=== PATIENT | male | born 1960 | race Caucasian/White ===

== ENCOUNTER 2016-09-08 11:32 | Observation (INO) ==
[2016-09-08] MEDS ORDERED: NITROGLYCERIN SL 0.4 MG TABLET SL PRN (11:54)
[2016-09-08] MEDS ORDERED: ASPIRIN 325 MG TABLET PO STA (11:54)
[2016-09-08] MEDS ORDERED: ENOXAPARIN 100 MG/ML SYRINGE SUBCUT STA (11:54)
--- NOTE | 2016-09-08 11:57 | EKG Report ---
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
[2016-09-08 12:00] LABS: Basophils # 0.1 10*3/uL (0.0-0.2); Basophils % 0.5 % (0.0-0.8); Eosinophils # 0.2 10*3/uL (0.0-0.87); Eosinophils % 2.5 % (0.00-10.9); Hematocrit 44.3 VOL% (42.0-52.0); Hemoglobin 15.1 GM/DL (14.0-18.0); Immature Granulocytes % 0.5 %; Immature Granulocytes Absolute 0.05 #; Lymphocytes # 2.2 10*3/uL (1.4-4.0); Lymphocytes % 22.4 % (21.2-54.2); Mean Corpuscular HGB Conc 34.1 GM/DL (32-36); Mean Corpuscular Hemoglobin 31 PG (27-34); Mean Corpuscular Volume 91.9 FL (87-102); Mean Platelet Volume 9.7 FL (9.6-12.0); Monocytes # 0.5 10*3/uL (0.11-0.8); Monocytes % 5.1 % (1.7-12.7); Neutrophils # 6.7 10*3/uL (1.4-7.4); Platelet Count 302 T/CUMM (130-400); Red Blood Count 4.82 MC/CUMM (3.8-5.5); Red Cell Distribution Width 13.6 % (9.3-17.3); White Blood Count 9.7 T/CUMM (4-12)
[2016-09-08] MEDS ORDERED: ENOXAPARIN 100 MG/ML SYRINGE SUBCUT ONE (12:13)
[2016-09-08] MEDS ORDERED: ASPIRIN 325 MG TABLET ONE (12:13)
--- NOTE | 2016-09-08 12:16 | XRay Report ---
XR chest 2V Indication: Chest pain. Chest 2 views: Comparison 11/21/2015. Heart size and mediastinal contour are normal. Lungs are hypoinflated but generally clear, except for minimal bibasilar atelectasis. Pleural spaces are clear. Bones are intact. Impression: Mild pulmonary hypoinflation with atelectasis. PROCEDURE INTERPRETED AT [facility] DEPARTMENT OF RADIOLOGY Final Report Signed by: Ion Pleitez M.D.
[2016-09-08 12:17] LABS: Albumin 3.9 G/DL (3.4-5.0); Bilirubin,Total 0.4 MG/DL (0.2-1.0); Calcium 9.4 MG/DL (8.5-10.1); Osmolality,Calculated 277.5 MOS/KG (273-304); Potassium 4.2 MMOL/L (3.5-5.1); Total Protein 7.3 G/DL (6.4-8.3)
--- NOTE | 2016-09-08 13:31 | Emergency Department Note ---
Mark Florian Gwan, am scribing for, and in the presence of, Enrique Calvillo MD 12:00. Rajinder Florian Phillip K, MD, personally performed the services described in this documentation, ascribed by Radha Flores in my presence, and it is both accurate and complete [id number] . Arrival - Arrival Chief Complaint: Chest Pain Stated Complaint: SOB, elev HR, back pain,sent by [facility] ED Nursing Triage Note: Pt c/o Chest pain, SOB, neck and back pain since yesterday. Mode of Arrival: Ambulatory Limitations: No Limitations Source: Patient, Old Records Reviewed, RN Notes Reviewed - History of Present Illness HPI Narrative: Pt is a 56 y/o male, with a hx of NIDDM, who presents to the ED with a c/o chest pain with an onset 0500 yesterday morning. Patient stated that his chest pain was accompanied by nausea and dizziness. Patient continued to state that he reported to the [facility] this morning due to his sxs and after review, pt was prompted to report to the ED for further evaluation. He describes his discomfort as a tightness and that it now radiates to his back in between his shoulder blades and to the back of his neck. Patient confirmed that he had a heart cath performed 7 years ago with negative results. Patient continued to say that for the past 2 months, he has had this pain in his chest that is worsened with exertion and is followed by dizziness. He stated that he has been complaint with taking 1 low dose aspirin daily. Patient denies having this pain before or any hx of heart disease. He has a FMHx of heart disease. While in ED, pt stated that he still has chest tightness. He denies any abd pain. No other problems/complaints reported in ED. Onset (ago): day(s) Consistency: constant Severity: moderate Home Medications: Home Medications Medication Instructions Recorded Confirmed Type Allopurinol 300 mg PO BID 09/08/16 09/08/16 History Aspirin [Aspirin EC] 81 mg PO BEDTIME 09/08/16 09/08/16 History Atorvastatin Calcium 10 mg PO DAILY 09/08/16 09/08/16 History Cholecalciferol [Vitamin D3] 1,000 unit PO DAILY 09/08/16 09/08/16 History Metformin HCl 1,000 mg PO BID 09/08/16 09/08/16 History Methocarbamol Tab [Robaxin Tab] 500 mg PO BEDTIME 09/08/16 09/08/16 History Pantoprazole Tab [Protonix Tab] 40 mg PO DAILY 09/08/16 09/08/16 History glipiZIDE [Glipizide] 2.5 mg PO AC BREAKFAST 09/08/16 09/08/16 History glipiZIDE [Glipizide] 2.5 mg PO AC SUPPER 09/08/16 09/08/16 History Review of System - Review of System 12 point system: reviewed and no additional remarkable complaints except as stated - Review of System Constitutional: Absent: chills, fever Eyes: Absent: discharge, pain Head/Ears/Nose/Throat: Absent: earache Respiratory: Absent: cough Cardiovascular: Present: as per HPI, chest pain Gastrointestinal: Present: as per HPI, nausea Genitourinary male: Absent: urgency Musculoskeletal: Present: as per HPI, back pain, neck pain. Absent: arm pain Neurological: Absent: headache, weakness Medical,Surgical,& Family Hx - Medical History Endocrine: History of: Diabetes Mellitus (NIDDM) Rheumatology: History of;: Gout - Social History Smoking Status: Never smoker Exam Vital Signs: Vital Signs Temperature 98.3 F 09/08/16 11:46 Pulse Rate 112 H 09/08/16 11:46 Respiratory Rate 20 09/08/16 11:46 Blood Pressure 136/103 09/08/16 11:46 O2 Sat by Pulse Oximetry 98 09/08/16 11:39 - General General appearance: alert, in no apparent distress - Head Head exam: Present: atraumatic, normocephalic - Eye Eye exam: Present: normal appearance, PERRL, EOMI - ENT ENT exam: Present: normal oropharynx, mucous membranes moist, TM's normal bilaterally, normal external ear exam - Neck Neck exam: Present: full ROM, trachea midline. Absent: tenderness - Chest Chest inspection: Present: symmetric chest wall rise. Absent: tenderness - Respiratory Respiratory exam: Present: normal lung sounds bilaterally. Absent: respiratory distress - Cardiovascular Cardiovascular exam: Present: normal rhythm, tachycardia. Absent: murmur - Abdominal Exam Abdominal exam: Present: soft, normal bowel sounds. Absent: distention, tenderness - Extremities Exam Extremities exam: Present: full ROM. Absent: tenderness, pedal edema, calf tenderness - Back Exam Back exam: Present: full ROM. Absent: tenderness - Neurological Exam Neurological exam: Present: alert, oriented X3, CN II-XII intact. Absent: motor sensory deficit - Psychiatric Psychiatric exam: Present: normal affect, normal mood - Skin Skin exam: Present: warm, dry, intact, normal color Results - Labs CBC & BMP: 09/08/16 11:40 09/08/16 11:40 Lab Results: I have reviewed the patients labs Labs: Laboratory Tests 09/08/16 11:40 WBC 9.7 RBC 4.82 Hgb 15.1 Hct 44.3 Plt Count 302 - EKG EKG results: interpreted by NARESH, sinus rhythm (Sinus tachycardia) - Diagnostic Findings Procedure: Chest x-ray: report reviewed by me (Nothing acute) Disposition Clinical Impression: Chest pain, Possible unstable angina Case discussed with: patient Disposition: Still a Patient Condition: Guarded Additional Instructions: Admit for further workup.
[2016-09-08] MEDS ORDERED: ACETAMINOPHEN 500 MG TABLET ONE (13:40)
[2016-09-08] MEDS ORDERED: ACETAMINOPHEN 500 MG TABLET PO STA (13:42)
[2016-09-08] MEDS ORDERED: NITROGLYCERIN 2% OINT 1 INCH/GM PACK TOP STA (14:23)
--- NOTE | 2016-09-08 14:48 | CT Report ---
History: Left facial droop Date: 09/08/2016 Study: CT head without contrast Comparison exam: June 10, [address] sections were obtained through the head without IV contrast. This CT exam was performed using one or more the following dose reduction techniques: Automated exposure control, adjustment of the MA and/or KV according to patient size, or use of iterative reconstruction technique. The ventricles are midline in position without evidence of hydrocephalus. There is no mass or parenchymal hemorrhage. There is no gross CT evidence of acute cortical stroke. There is small amount of ill-defined low-density in the periventricular white matter without mass effect compatible with changes of small vessel disease. There is no acute extra-axial hematoma. The partially visualized paranasal sinuses are remarkable for some mild mucosal thickening in the inferior aspect of the right frontal sinus as well as some minimal diffuse mucosal thickening in the ethmoid air cells. Impression: No acute intracranial abnormality compared to the previous study. Mild sinus disease PROCEDURE INTERPRETED AT [facility] DEPARTMENT OF RADIOLOGY Final Report Signed by: Dr. Angie Cantu
[2016-09-08] MEDS ORDERED: NITROGLYCERIN 2% OINT 1 INCH/GM PACK TOP ONE (15:06)
[2016-09-08] MEDS ORDERED: MAGNESIUM SULF RIDER 2 GM in PREMIX 1 EACH IV PRN (15:21)
[2016-09-08] MEDS ORDERED: ONDANSETRON 4 MG/2 ML VIAL IV PRN (15:21)
[2016-09-08] MEDS ORDERED: MAGNESIUM SULF RIDER 4 GM in PREMIX 1 EACH IV PRN (15:21)
[2016-09-08] MEDS ORDERED: BISACODYL 5 MG TABLET PO PRN (15:21)
[2016-09-08] MEDS ORDERED: DOCUSATE SODIUM 100 MG CAPSULE PO PRN (15:21)
[2016-09-08] MEDS ORDERED: ZALEPLON 5 MG CAPSULE PO PRN (15:21)
[2016-09-08] MEDS ORDERED: SODIUM CHLORIDE 0.45% 1,000 ML IV SCH (15:30)
--- NOTE | 2016-09-08 15:45 | Cardiology History & Physical ---
Assessment and Plan - Time spent with patient Time spent with patient: Greater than 30 minutes (1) Dyslipidemia Status: Chronic Assessment and plan: SEE PLAN OF CARE LISTED BELOW Current Visit: Yes (2) Diabetes Status: Chronic Assessment and plan: SEE PLAN OF CARE LISTED BELOW Current Visit: Yes (3) Obesity (BMI 30.0-34.9) Status: Chronic Assessment and plan: SEE PLAN OF CARE LISTED BELOW Current Visit: Yes (4) Sleep disorder Status: Chronic Assessment and plan: SEE PLAN OF CARE LISTED BELOW Current Visit: Yes (5) Facial droop Status: Acute Current Visit: Yes (6) Sinus tachycardia Status: Chronic Assessment and plan: SEE PLAN OF CARE LISTED BELOW Current Visit: Yes (7) Chest pain Status: Acute Assessment and plan: SEE PLAN OF CARE LISTED BELOW Current Visit: Yes History of Present Illness Chief complaint: Chest pain, shortness of breath History of present illness: CLUTCH SPECIALIST: DR. NEVAREZ (NEW) Patient is being seen in the emergency department at [facility] Mr. Messer, 56WM, previously seen by Dr. Terrell in 2003 without follow-up. Risk factors include: Diabetes, dyslipidemia, obesity, family history of premature coronary artery disease. Patient presented to the emergency department at [facility] this morning after experiencing 24 hours of chest pain. The chest discomfort started Thursday morning after waking and was located in the left chest area. He found it difficult to take a full deep breath because "it felt as if an elephant was sitting on my chest". This waxed and waned and then began to radiate to his back and between his shoulder blades. He was somewhat nauseated and weak feeling. He is unable to write the discomfort on a scale of 1-10. This morning , the chest discomfort radiating to the back of his neck and then around to his jaws bilaterally. This occurred while sitting. He can identify no aggravating factors and to the nitroglycerin improved the discomfort. Cardiac biomarkers are negative. EKG is unremarkable. Patient had a heart catheterization in [address] Terrell's. The report reveals no obstructive CAD, normal LVEF. He did not require follow-up at that time. During my interview, he described left facial numbness and tingling. I observed a left facial droop. This is the first time I have seen Mr. Messer. I conferred with his director field services he was at the bedside and his director field services seem to think this was a new finding as well. He did not have any hemiparesis or paralysis. He has received aspirin 325 mg as well as a therapeutic dose of Lovenox. I discussed with Dr. Nevarez. Patient will undergo CT of head without contrast. Will consult Dr. Hong, as well. Patient will most likely need a cardiac catheterization during this hospital stay however will ask that Dr. Hong to evaluate and make recommendations accordingly. If patient required stenting he would need dual antiplatelet therapy for 1 year. Of note, patient also reports he has had "bleeding behind both of my eyes" over the past year. He Sees Physicians at the [facility] in [place] and this was watched very closely each week. During that time, his aspirin therapy was not interrupted. He tells me that he is unaware of the etiology of source of bleeding. I will request records today. He was also hospitalized approximately 1 year ago for dehydration with a tachycardic rate. In the past, he was put on an antihypertensive medication but he stopped on his own as he states that he monitored his blood pressure routinely and it was within normal limits. However, he tells me he is always had a fast heart rate averaging around 115 bpm. He may be somewhat dehydrated. Heart rate is around 100 bpm and will continue to monitor closely. Hydrate patient and may require consuelo blocking agent prior to discharge if blood pressure will allow. ASSESSMENT/PLAN: 1. CHEST PAIN CONCERNING FOR ANGINA - will continue to cycle cardiac biomarkers and EKG. Patient may need cardiac catheterization prior to discharge. Echocardiogram is pending. 2. LEFT FACIAL DROOP - CT head without contrast reveals no significant abnormality. Dr. Hong has been consulted 3. DYSLIPIDEMIA - fasting lipid profile in the morning. Continue lipid- lowering agent 4. DIABETES - sliding scale insulin during hospital stay. 5. OBESITY - dietary counseling prior to discharge 6. SUSPECTED SLEEP DISTURBANCE - will further evaluate during this hospital stay. 7. SINUS TACHYCARDIA - hydrate, TSH, may require consuelo blocking agent prior to discharge if BP will allow. Home Medications Medication Instructions Recorded Confirmed Type Allopurinol 300 mg PO BID 09/08/16 09/08/16 History Aspirin [Aspirin EC] 81 mg PO BEDTIME 09/08/16 09/08/16 History Atorvastatin Calcium 10 mg PO DAILY 09/08/16 09/08/16 History Cholecalciferol [Vitamin D3] 1,000 unit PO DAILY 09/08/16 09/08/16 History Metformin HCl 1,000 mg PO BID 09/08/16 09/08/16 History Methocarbamol Tab [Robaxin Tab] 500 mg PO BEDTIME 09/08/16 09/08/16 History Pantoprazole Tab [Protonix Tab] 40 mg PO DAILY 09/08/16 09/08/16 History glipiZIDE [Glipizide] 2.5 mg PO AC BREAKFAST 09/08/16 09/08/16 History glipiZIDE [Glipizide] 2.5 mg PO AC SUPPER 09/08/16 09/08/16 History Allergies Allergy/AdvReac Type Severity Reaction Status Date / Time No Known Allergies Allergy Unverified 09/08/16 13:02 Review of systems: REVIEW OF SYSTEMS: - Constitutional Constitutional: Present: Fatigue. Absent: syncope, anorexia, night sweats - EENT Eyes: Has been having vision changes followed by a physician at the [facility] in [place]. Absent: loss of vision, diplopia Ears: Absent: decreased hearing, ear pain, ear discharge - Cardiovascular Cardiovascular: Present: See HPI. Denies edema, palpitations. Absent: chest pain with deep breath, claudication. Denies PE or DVT history - Respiratory Respiratory: Denies: LYONS, cough. Absent: wheezing, hemoptysis, change in phlegm color - Gastrointestinal Gastrointestinal: Denies: constipation. Absent: abdominal pain, hematemesis, hematochezia, melena, change in bowel habits - Genitourinary Genitourinary: Absent: difficulty urinating, dysuria, urinary hesitancy, flank pain - Musculoskeletal Musculoskeletal: Present: back pain, neck Absent: joint swelling, muscle cramps, muscle weakness - Neurological Neurological: Present: normal gait without frequent falls. Absent: dizziness, hemiparesis - Psychiatric Psychiatric: Absent: anxiety, depression, difficulty concentrating - Endocrine Endocrine: Absent: cold intolerance, heat intolerance, polyuria, polyphagia, polydipsia - Hematologic/Lymphatic Hematologic/Lymphatic: Present: easy bruising. Absent: easy bleeding -Integumentary Integumentary: Absent: lesions, rashes, skin breakdown Medical,Surgical,& Family Hx - Medical History Cardio: No history of: Cardiac Dysrhythmia, CAD, Hypertension Endocrine: History of: Diabetes Mellitus (NIDDM) Rheumatology: History of;: Gout - Surgical History Cardiac Surgeries: Sugical HX of: Cardiac Catheterization ([address] Terrell. No CAD noted) Abdominal Surgeries: Surgical HX of: Appendectomy - Social History Smoking Status: Never smoker Have you smoked in the last 12 months: No Frequency of Alcohol Use: None Type of Drug Use: None Marital Status: Lives With:: Spouse Functional capacity: independent ambulation Cardiology Physical Exam - Constitutional Vitals: Vital Signs Temp Pulse Resp BP Pulse Ox 98.3 F 112 H 20 136/103 98 09/08/16 11:46 09/08/16 11:46 09/08/16 11:46 09/08/16 11:46 09/08/16 11:39 Intake and Output 09/07/16 09/08/16 09/08/16 23:59 07:59 15:59 Other: Weight 96.615 kg Patient Weight 09/08/16 23:59 Weight 96.615 kg Exam: General: [Appears well with no apparent distress.] [Pleasant and cooperative. ] [Appears comfortable.] HEENT: [PERRL, normocephalic, atraumatic. Mucous membranes moist. No jaundice noted. Conjunctiva moist and clear, sclerae anicteric]. Left mouth droop noted. EOMs intact. Neck: No JVD/HJR, no thyromegaly or lymphadenopathy noted. No carotid bruit appreciated Cardiac: [Fast rate rate and rhythm.] [No murmur rub or gallop.] Lungs: [Clear to auscultation without accessory muscle use to assist the respiratory pattern.] Oxygen in use via nasal cannula Abdomen: Soft, bowel sounds normoactive. Nontender and nondistended. No abdominal bruit or thrill noted. No masses noted. Musculoskeletal: No fluid collection. Decreased range of motion is noted. Extremities: No clubbing, cyanosis noted. [ No edema noted.] Upper extremity pulses 2+. Lower extremity pulses 2+. Capillary refill less than 3 seconds. Skin: No unusual lesions or rashes. No skin breakdown appreciated. Neuro: Awake, alert and oriented 3. Moves all extremities well without hemiparesis or paralysis. No essential tremor is appreciated. Result/EKG - Labs CBC & BMP: 09/08/16 11:40 09/08/16 11:40 Lab Results: I have reviewed the past 24 hour labs Labs: Laboratory Results - last 24 hr 09/08/16 09/08/16 09/08/16 11:40 11:40 11:40 WBC 9.7 RBC 4.82 Hgb 15.1 Hct 44.3 MCV 91.9 MCH 31 MCHC 34.1 RDW 13.6 Plt Count 302 MPV 9.7 Neut % (Auto) 69.0 Lymph % (Auto) 22.4 [place] % (Auto) 5.1 Eos % (Auto) 2.5 Baso % (Auto) 0.5 Neut # (Auto) 6.7 Lymph # (Auto) 2.2 [place] # (Auto) 0.5 Eos # (Auto) 0.2 Baso # (Auto) 0.1 Immature Gran % 0.5 Nucleated RBC % 0.0 Immature Gran # 0.05 Nucleated RBCs # 0.00 Sodium 139 Potassium 4.2 Chloride 105 Carbon Dioxide 26 Anion Gap 12.2 BUN 8 Creatinine 1.30 GFR Calculation 75 BUN/Creatinine Ratio 6.00 Glucose 149 H Calculated Osmolality 277.5 Calcium 9.4 Magnesium Total Bilirubin 0.40 AST 60 H ALT 121 H Alkaline Phosphatase 117 Troponin I < 0.015 Total Protein 7.3 Albumin 3.9 Globulin 3.4 Albumin/Globulin Ratio 1.1 Lipase 206.0 09/08/16 12:22 WBC RBC Hgb Hct MCV MCH MCHC RDW Plt Count MPV Neut % (Auto) Lymph % (Auto) [place] % (Auto) Eos % (Auto) Baso % (Auto) Neut # (Auto) Lymph # (Auto) [place] # (Auto) Eos # (Auto) Baso # (Auto) Immature Gran % Nucleated RBC % Immature Gran # Nucleated RBCs # Sodium Potassium Chloride Carbon Dioxide Anion Gap BUN Creatinine GFR Calculation BUN/Creatinine Ratio Glucose Calculated Osmolality Calcium Magnesium 1.7 L Total Bilirubin AST ALT Alkaline Phosphatase Troponin I Total Protein Albumin Globulin Albumin/Globulin Ratio Lipase - Diagnostic Findings Procedure: Chest x-ray: report reviewed by me, CT: report reviewed by me - EKG EKG results: interpreted by me EKG shows: tachycardia Quality Measures - VTE Contraindication to Pharmacological VTE Prophylaxis: High Risk of Bleeding
[2016-09-08] MEDS ORDERED: GLUCAGON 1 MG VIAL IM PRN (15:55)
[2016-09-08] MEDS ORDERED: DEXTROSE 50% 25 GM/50 ML VIAL IV PRN (15:55)
[2016-09-08 16:30] LABS: Calcium 8.8 MG/DL (8.5-10.1); Magnesium 1.8 MG/DL (1.8-2.4); Osmolality,Calculated 277.4 MOS/KG (273-304); Potassium 3.7 MMOL/L (3.5-5.1)
[2016-09-08 16:40] LABS: Free T4 (Free Thyroxine) 1.11 NG/DL (0.76-1.46); Thyroid Stimulating Hormone 2.74 uIU/ml (0.358-3.74)
--- NOTE | 2016-09-08 17:36 | ECHO Report ---
Reinaldo Messer Exam Date: 09/08/2016 16:20 Referring Physician: Technologist: Diane Robles Age: 56 Ht (in): 69 Wt (lb): 213 Gender: M Exam Location: [facility] Echo Indications: sinus tachycardia, facial weakness, chest pain, dyslipidemia, diabetes, sleep disorder BP: 136 / 103 HR: 112 Rhythm: tachycardia Technical Quality: average IMPRESSIONS Left ventricular ejection fraction is estimated at 55 %. Moderate concentric left ventricular hypertrophy with diastolic dysfunction most consisten with Grade 2 diastolic dysfunction or pseudonormalization. Right ventricular size is slightly increased. Tricuspid regurgitation velocities suggest a RVSP of 15 mmHg + RAP. MEASUREMENTS (Male / Female) Normal Values 2D ECHO LV Diastolic Diameter PLAX 3.9 cm 4.2 - 5.9 / 3.9 - 5.3 cm LV Systolic Diameter PLAX 2.1 cm LV Fractional Shortening PLAX 46.8 % IVS Diastolic Thickness 1.6 cm 0.6 - 1.0 / 0.6 - 0.9 cm LVPW Diastolic Thickness 1.4 cm 0.6 - 1.0 / 0.6 - 0.9 cm RV Internal Dim ED PLAX 2.5 cm Aortic Root Diameter 3.1 cm LA Systolic Diameter LX 3.2 cm 3.0 - 4.0 / 2.7 - 3.8 cm DOPPLER TR Peak Velocity 191.0 cm/s TR Peak Gradient 14.6 mmHg FINDINGS Left Ventricle Normal left ventricular cavity size. Moderate concentric left ventricular hypertrophy with diastolic dysfunction most consisten with Grade 2 diastolic dysfunction or pseudonormalization. Left ventricular ejection fraction is estimated at 55 %. Right Ventricle Right ventricular size is slightly increased. Right Atrium Normal right atrial size. Left Atrium Normal left atrial size. Mitral Valve Mild mitral valve sclerosis. Mild mitral valve regurgitation. Aortic Valve Mild aortic valve sclerosis. Tricuspid Valve Morphologically normal tricuspid valve. Trace to mild tricuspid valve regurgitation. Tricuspid regurgitation velocities suggest a RVSP of 15 mmHg + RAP. Pulmonic Valve Morphologically normal pulmonic valve. Pericardium No pericardial effusion. Aorta Normal size aortic root and proximal ascending aorta. Parul Webb (Electronically Signed) Final Date: 08 Sep 2016 17:35
[2016-09-08] MEDS: glipiZIDE 5 MG TABLET PO SCH (18:06)
[2016-09-08] MEDS: PANTOPRAZOLE 40 MG TABLET PO SCH (18:07)
[2016-09-08] MEDS: INSULIN REGULAR 100 UNIT/ML SUBCUT SCH ×2 (18:30→21:35)
[2016-09-08] MEDS ORDERED: ACETAMINOPHEN 325 MG TABLET PO PRN (19:08)
[2016-09-08] MEDS ORDERED: POTASSIUM CHLORIDE 20 MEQ TABLET PO ONE (19:49)
[2016-09-08] MEDS ORDERED: ATORVASTATIN 20 MG TABLET PO SCH (21:00)
[2016-09-08] MEDS ORDERED: METHOCARBAMOL 500 MG TABLET PO SCH (21:00)
[2016-09-08] MEDS: ALLOPURINOL 300 MG TABLET PO SCH (21:36)
[2016-09-09 06:23] LABS: Basophils % 0.6 % (0.0-0.8); Eosinophils # 0.3 10*3/uL (0.0-0.87); Eosinophils % 4.5 % (0.00-10.9); Hematocrit 41.8 VOL% (42.0-52.0); Hemoglobin 14.3 GM/DL (14.0-18.0); Immature Granulocytes % 0.4 %; Immature Granulocytes Absolute 0.03 #; Lymphocytes # 1.9 10*3/uL (1.4-4.0); Lymphocytes % 27.5 % (21.2-54.2); Mean Corpuscular HGB Conc 34.2 GM/DL (32-36); Mean Corpuscular Hemoglobin 31 PG (27-34); Mean Corpuscular Volume 90.9 FL (87-102); Mean Platelet Volume 9.8 FL (9.6-12.0); Monocytes # 0.5 10*3/uL (0.11-0.8); Monocytes % 6.6 % (1.7-12.7); Neutrophils # 4.1 10*3/uL (1.4-7.4); Neutrophils % 60.4 % (38.7-73.9); Platelet Count 253 T/CUMM (130-400); Red Cell Distribution Width 13.8 % (9.3-17.3); White Blood Count 6.8 T/CUMM (4-12)
[2016-09-09 06:57] LABS: Calcium 8.6 MG/DL (8.5-10.1); Magnesium 2.4 MG/DL (1.8-2.4); Osmolality,Calculated 284.1 MOS/KG (273-304); Potassium 4.4 MMOL/L (3.5-5.1)
[2016-09-09 07:01] LABS: Albumin 3.5 G/DL (3.4-5.0); Bilirubin,Total 0.6 MG/DL (0.2-1.0); Calcium 8.4 MG/DL (8.5-10.1); Potassium 4.5 MMOL/L (3.5-5.1); Risk Ratio 4.72; Total Protein 6.4 G/DL (6.4-8.3); VLDL CHOLESTEROL 40.6 MG/DL
[2016-09-09] MEDS ORDERED: glipiZIDE 5 MG TABLET PO SCH (07:30)
[2016-09-09] MEDS ORDERED: POTASSIUM CHLORIDE 20 MEQ TABLET PO SCH (09:00)
[2016-09-09] MEDS ORDERED: CHOLECALCIFEROL 1,000 UNIT TABLET PO SCH (09:00)
[2016-09-09] MEDS ORDERED: PANTOPRAZOLE 40 MG TABLET PO SCH (09:00)
--- NOTE | 2016-09-09 09:55 | EKG Report ---
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
--- NOTE | 2016-09-09 09:55 | EKG Report ---
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
--- NOTE | 2016-09-09 13:50 | Cardiology Progress Note ---
Assessment and Plan - Time spent with patient Time spent with patient: Greater than 30 minutes (1) Dyslipidemia Status: Chronic Assessment and plan: SEE PLAN OF CARE LISTED BELOW Current Visit: Yes (2) Diabetes Status: Chronic Assessment and plan: SEE PLAN OF CARE LISTED BELOW Current Visit: Yes (3) Obesity (BMI 30.0-34.9) Status: Chronic Assessment and plan: SEE PLAN OF CARE LISTED BELOW Current Visit: Yes (4) Sleep disorder Status: Chronic Assessment and plan: SEE PLAN OF CARE LISTED BELOW Current Visit: Yes (5) Facial droop Status: Resolved Current Visit: Yes (6) Sinus tachycardia Status: Chronic Assessment and plan: SEE PLAN OF CARE LISTED BELOW Current Visit: Yes (7) Chest pain Status: Acute Assessment and plan: SEE PLAN OF CARE LISTED BELOW Current Visit: Yes Cardiology - PN: Subj 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 Messer, 56WM, previously seen by Dr. Terrell in 2003 without follow-up. Risk factors include: diabetes, dyslipidemia, obesity, family history of premature coronary artery disease and suspected hypertension. Patient presented to the emergency department at [facility] September 08, 2016 with complaints of chest pain occurring consistently for greater than 24 hours. Cardiac biomarkers are negative. EKG is unremarkable. Patient had a heart catheterization in [address] Terrell revealing: no obstructive CAD, normal LVEF. During my interview in the ER, he described left facial numbness and tingling. 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 He had no other neurological deficits. He underwent CT Head without contrast which revealed no acute findings. Dr. Hong was consulted. History of "bleeding behind his eye" one year ago treated at [facility] in [place], [place]. SEPTEMBER 09, 2016: Overnight patient has had no chest pain, heaviness, tightness or left shoulder, neck or jaw pain. Facial droop resolved. He is NPO for stress testing this morning. Of note, patient is concerned because he has had elevated heart rates in the past (as high as 150's by patient report). He was given an anti-hypertensive at one point but he did not use because he felt as if his blood pressure was relatively well-controlled. He was also dehydrated when the heart rate was elevated per his soft shoe dancer's report. Vital signs stable without arrythmia during this hospital stay. SBP averaging 112 - 154/85-97. Will start low dose betablockade. He does have untreated sleep apnea. He has a machine and needs a different mask/adjustment and this will be persued outpatient. Echo: EF 55% with moderate concentric left ventricular hypertrophy , Grade II/IV DD, RVSP 15 mmHg + RAP. ASSESSMENT/PLAN: 1. CHEST PAIN CONCERNING FOR ANGINA -cardiac biomarkers negative, EKG stable. NPO for stress testing this morning. Echocardiogram reveals no significant abnormality. 2. LEFT FACIAL DROOP - CT head without contrast reveals no significant abnormality. Resolved. Dr. Hong has been consulted 3. DYSLIPIDEMIA - LDL 87. Continue lipid lowering agent. Trigs 203. 4. DIABETES - sliding scale insulin during hospital stay. 5. OBESITY - dietary counseling prior to discharge 6. SLEP APNEA - currently working with sleep medicine for better fit. 7. SINUS TACHYCARDIA, HISTORY OF - hydrate, TSH WNL. Will add Coreg 6.25mg orally BID. Heart rate well-controlled overnight. 8. HYPERTENSION - adding low dose Betablocker. Would like EVELIA (diabetic) however, favor rate controlling agent at this time. Exam (Progress Note) - Constitutional Vitals: Period Temp Pulse Resp BP Sys/Dutton Pulse Ox Last 24 Hr 97.5 F-98.6 F 70-88 18-20 112-144/78-97 93-98 Exam: General: [Appears well with no apparent distress.] [Pleasant and cooperative. ] [Appears comfortable.] HEENT: [PERRL, normocephalic, atraumatic. Mucous membranes moist. No jaundice noted. Conjunctiva moist and clear, sclerae anicteric] Neck: No JVD/HJR, no thyromegaly or lymphadenopathy noted. No carotid bruit appreciated Cardiac: [Regular rate and rhythm.] [No murmur rub or gallop.] Lungs: [Clear to auscultation without accessory muscle use to assist the respiratory pattern.] Not requiring oxygen Abdomen: Soft, bowel sounds normoactive. Nontender and nondistended. No abdominal bruit or thrill noted. No masses noted. Musculoskeletal: No fluid collection. Decreased range of motion is noted. Extremities: No clubbing, cyanosis noted. [ No edema noted.] Upper extremity pulses 2+. Lower extremity pulses 2+. Capillary refill less than 3 seconds. Skin: No unusual lesions or rashes. No skin breakdown appreciated. Neuro: Awake, alert and oriented 3. Moves all extremities well without hemiparesis or paralysis. No essential tremor is appreciated. Result/EKG - Labs CBC & BMP: 09/09/16 05:08 09/09/16 05:08 Lab Results: I have reviewed the past 24 hour labs Labs: Laboratory Results - last 24 hr 09/08/16 09/08/16 09/08/16 15:35 15:43 16:56 WBC RBC Hgb Hct MCV MCH MCHC RDW Plt Count MPV Neut % (Auto) Lymph % (Auto) [place] % (Auto) Eos % (Auto) Baso % (Auto) Neut # (Auto) Lymph # (Auto) [place] # (Auto) Eos # (Auto) Baso # (Auto) Immature Gran % Nucleated RBC % Immature Gran # Nucleated RBCs # Sodium Potassium Chloride Carbon Dioxide Anion Gap BUN Creatinine GFR Calculation BUN/Creatinine Ratio Glucose POC Glucose 99 Calculated Osmolality Calcium Magnesium Total Bilirubin AST ALT Alkaline Phosphatase Troponin I < 0.015 B-Natriuretic Peptide Total Protein Albumin Globulin Albumin/Globulin Ratio Triglycerides Cholesterol LDL Cholesterol VLDL Cholesterol HDL Cholesterol Heart Disease Risk Ratio Free T4 TSH 3rd Generation 4.100 H 09/08/16 09/08/16 09/08/16 18:47 21:33 Unknown WBC RBC Hgb Hct MCV MCH MCHC RDW Plt Count MPV Neut % (Auto) Lymph % (Auto) [place] % (Auto) Eos % (Auto) Baso % (Auto) Neut # (Auto) Lymph # (Auto) [place] # (Auto) Eos # (Auto) Baso # (Auto) Immature Gran % Nucleated RBC % Immature Gran # Nucleated RBCs # Sodium Potassium Chloride Carbon Dioxide Anion Gap BUN Creatinine GFR Calculation BUN/Creatinine Ratio Glucose POC Glucose 136 H Calculated Osmolality Calcium Magnesium Total Bilirubin AST ALT Alkaline Phosphatase Troponin I < 0.015 B-Natriuretic Peptide Total Protein Albumin Globulin Albumin/Globulin Ratio Triglycerides Cholesterol LDL Cholesterol VLDL Cholesterol HDL Cholesterol Heart Disease Risk Ratio Free T4 1.11 TSH 3rd Generation 2.740 09/08/16 09/09/16 09/09/16 Unknown 05:08 05:08 WBC 6.8 RBC 4.60 Hgb 14.3 Hct 41.8 L MCV 90.9 MCH 31 MCHC 34.2 RDW 13.8 Plt Count 253 MPV 9.8 Neut % (Auto) 60.4 Lymph % (Auto) 27.5 [place] % (Auto) 6.6 Eos % (Auto) 4.5 Baso % (Auto) 0.6 Neut # (Auto) 4.1 Lymph # (Auto) 1.9 [place] # (Auto) 0.5 Eos # (Auto) 0.3 Baso # (Auto) 0.0 Immature Gran % 0.4 Nucleated RBC % 0.0 Immature Gran # 0.03 Nucleated RBCs # 0.00 Sodium 140 143 Potassium 3.7 4.5 Chloride 107 108 H Carbon Dioxide 25 27 Anion Gap 11.7 12.5 BUN 9 11 Creatinine 1.10 1.10 GFR Calculation 92 92 BUN/Creatinine Ratio 8.00 10.00 Glucose 102 144 H POC Glucose Calculated Osmolality 277.4 286.0 Calcium 8.8 8.4 L Magnesium 1.8 Total Bilirubin 0.60 AST 47 H ALT 99 H Alkaline Phosphatase 107 Troponin I B-Natriuretic Peptide Total Protein 6.4 Albumin 3.5 Globulin 2.9 Albumin/Globulin Ratio 1.2 Triglycerides 203 H Cholesterol 137 LDL Cholesterol 87.0 VLDL Cholesterol 40.6 HDL Cholesterol 29 L Heart Disease Risk Ratio 4.72 Free T4 TSH 3rd Generation 09/09/16 09/09/16 09/09/16 05:08 05:08 07:19 WBC RBC Hgb Hct MCV MCH MCHC RDW Plt Count MPV Neut % (Auto) Lymph % (Auto) [place] % (Auto) Eos % (Auto) Baso % (Auto) Neut # (Auto) Lymph # (Auto) [place] # (Auto) Eos # (Auto) Baso # (Auto) Immature Gran % Nucleated RBC % Immature Gran # Nucleated RBCs # Sodium 142 Potassium 4.4 Chloride 106 Carbon Dioxide 27 Anion Gap 13.4 BUN 10 Creatinine 1.20 GFR Calculation 82 BUN/Creatinine Ratio 8.00 Glucose 144 H POC Glucose 158 H Calculated Osmolality 284.1 Calcium 8.6 Magnesium 2.4 Total Bilirubin AST ALT Alkaline Phosphatase Troponin I B-Natriuretic Peptide 13 Total Protein Albumin Globulin Albumin/Globulin Ratio Triglycerides Cholesterol LDL Cholesterol VLDL Cholesterol HDL Cholesterol Heart Disease Risk Ratio Free T4 TSH 3rd Generation 09/09/16 11:56 WBC RBC Hgb Hct MCV MCH MCHC RDW Plt Count MPV Neut % (Auto) Lymph % (Auto) [place] % (Auto) Eos % (Auto) Baso % (Auto) Neut # (Auto) Lymph # (Auto) [place] # (Auto) Eos # (Auto) Baso # (Auto) Immature Gran % Nucleated RBC % Immature Gran # Nucleated RBCs # Sodium Potassium Chloride Carbon Dioxide Anion Gap BUN Creatinine GFR Calculation BUN/Creatinine Ratio Glucose POC Glucose 126 H Calculated Osmolality Calcium Magnesium Total Bilirubin AST ALT Alkaline Phosphatase Troponin I B-Natriuretic Peptide Total Protein Albumin Globulin Albumin/Globulin Ratio Triglycerides Cholesterol LDL Cholesterol VLDL Cholesterol HDL Cholesterol Heart Disease Risk Ratio Free T4 TSH 3rd Generation - Diagnostic Findings Procedure: Chest x-ray: report reviewed by me, CT: report reviewed by me - EKG EKG results: interpreted by me EKG shows: sinus rhythm Quality Measures - VTE Contraindication to Pharmacological VTE Prophylaxis: High Risk of Bleeding
--- NOTE | 2016-09-09 13:51 | Event Note ---
Patient underwent Cardiolite stress testing this morning. He achieved target heart rate without complaints of chest pain, heaviness or tightness. Poor exercise tolerance noted. Moderate dyspnea on exertion. No ST changes or arrhythmia noted. He is being transitioned to nuclear medicine for completion of final scan. Dr. Nevarez to read, interpreted and advise.
[2016-09-09] MEDS: PANTOPRAZOLE 40 MG TABLET PO SCH (13:57)
[2016-09-09] MEDS: ALLOPURINOL 300 MG TABLET PO SCH (13:58)
[2016-09-09] MEDS: INSULIN REGULAR 100 UNIT/ML SUBCUT SCH (13:59)
[2016-09-09 15:31] VITALS: BP 137/85
--- NOTE | 2016-09-09 15:48 | Neurology Consult Note ---
History of Present Illness History of present illness: Mr. Messer, 56 years old right-handed white gentleman with past medical history significant for diabetes, dyslipidemia, obesity, family history of premature coronary artery disease. Patient presented to the emergency department at [facility] yesterday morning after experiencing 24 hours of chest pain. The chest discomfort started Thursday morning after waking and was located in the left chest area. He found it difficult to take a full deep breath because "it felt as if an elephant was sitting on my chest". This waxed and waned and then began to radiate to his back and between his shoulder blades. He was somewhat nauseated and weak feeling. He also felt some left facial and tongue tingling which went away after he took nitroglycerin. CT scan of the head is unremarkable for any acute pathology. Echocardiogram revealed ejection fraction of 55%. Lipid profile reveals triglycerides of 203. Cardiac biomarkers are negative. EKG is unremarkable. Home Medications Medication Instructions Recorded Confirmed Type Allopurinol 300 mg PO BID 09/08/16 09/08/16 History Aspirin [Aspirin EC] 81 mg PO BEDTIME 09/08/16 09/08/16 History Atorvastatin Calcium 10 mg PO DAILY 09/08/16 09/08/16 History Cholecalciferol [Vitamin D3] 1,000 unit PO DAILY 09/08/16 09/08/16 History Metformin HCl 1,000 mg PO BID 09/08/16 09/08/16 History Methocarbamol Tab [Robaxin Tab] 500 mg PO BEDTIME 09/08/16 09/08/16 History Pantoprazole Tab [Protonix Tab] 40 mg PO DAILY 09/08/16 09/08/16 History glipiZIDE [Glipizide] 2.5 mg PO AC BREAKFAST 09/08/16 09/08/16 History glipiZIDE [Glipizide] 2.5 mg PO AC SUPPER 09/08/16 09/08/16 History Allergies Allergy/AdvReac Type Severity Reaction Status Date / Time No Known Allergies Allergy Unverified 09/08/16 13:02 12 point system: reviewed and no additional remarkable complaints except as stated Medical,Surgical,& Family Hx - Medical History Cardio: No history of: Cardiac Dysrhythmia, CAD, Hypertension Endocrine: History of: Diabetes Mellitus (NIDDM) Rheumatology: History of;: Gout - Surgical History Cardiac Surgeries: Sugical HX of: Cardiac Catheterization ([address] Terrell. No CAD noted) Abdominal Surgeries: Surgical HX of: Appendectomy Orthopedic Surgeries: Surgical HX of;: Orthopedic Surgery (LEFT KNEE) - Social History Smoking Status: Never smoker Frequency of Alcohol Use: None Type of Drug Use: None Exam - Constitutional Vitals: Period Temp Pulse Resp BP Sys/Dutton Pulse Ox Last 24 Hr 97.5 F-98.6 F 70-90 18-20 112-144/78-97 93-98 Exam: GENERAL: Patient is in no acute distress. NECK: Neck is supple. There is no JVD. No carotid bruits present. No thyroid masses. CVS: First and second heart sounds are normal. There is no S3 present. Regular rate and rhythm. RESPIRATORY: Lungs are clear to auscultation without any rales or rhonchi. ABDOMEN: Soft and non-tender. Bowel sounds are present. There is no hepatosplenomegaly. EXT: There is no palpable edema. Peripheral pulses are present. Skin: No rashes Central Nervous system: General: Alert, awake and Oriented x 3 Speech: Fluent Comprehension: Intact and normal Facial expressions: Normal Cranial Nerves: CN1/Olfactory: Normal CN II/ Optic: Normal, Visual Hutchins unreliable CN III, and : GAYLE & EOMI CN V: Normal & intact CN VII: face is symmetric CNVIII: Normal CN XI/X/XI/XII: Intact and Normal Motor: Bulk and Tone is normal. Strength in the right 5/5 Strength in the left 5/5 Sensory: Grossly intact for all the modalities of PP, LT and temp sense Reflexes: 1+ and symmetrical Cerebellar function: Normal finger to nose and heel to walker testing. Toes: Equivocal Gait: Normal heel to heel and toe to toe and tandem walk. Results - Labs CBC & BMP: 09/09/16 05:08 09/09/16 05:08 Assessment and Plan (1) TIA (transient ischemic attack) Status: Acute Assessment and plan: Change aspirin to 325 mg. Daily Carotid ultrasound Home if ultrasound looks okay Thank you for the consult Current Visit: Yes
--- NOTE | 2016-09-09 16:56 | Discharge Summary ---
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 Messer, 56WM, previously seen by Dr. Terrell in 2003 without follow-up. Risk factors include: diabetes, dyslipidemia, obesity, family history of premature coronary artery disease and suspected hypertension. Patient presented to the emergency department at [facility] September 08, 2016 with complaints of chest pain occurring consistently for greater than 24 hours. Cardiac biomarkers are negative. EKG is unremarkable. Patient had a heart catheterization in [address] Terrell revealing: no obstructive CAD, normal LVEF. During my interview in the ER, he described left facial numbness and tingling. 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 He had no other neurological deficits. He underwent CT Head without contrast which revealed no acute findings. Dr. Hong was consulted. History of "bleeding behind his eye" one year ago treated at [facility] in [place], [place]. Overnight patient has had no chest pain, heaviness, tightness or left shoulder, neck or jaw pain. Facial droop resolved. He underwent nuclear stress testing which revealed no evidence of reversible ischemia. His echocardiogram revealed the following: EF 55% with moderate concentric left ventricular hypertrophy, Grade II/IV DD, RVSP 15 mmHg + RAP. Of note, patient has been concerned because he has had elevated heart rates in the past (as high as 150's by patient report). During this hospital stay, his heart rate was elevated on admission to the ER around 100 bpm. He was rehydrated and his heart rate is averaged around 70 bpm, no arrhythmias noted. He is being discharged today. He is being given a Holter monitor and will follow up with Dr. Nevarez in approximately 2 weeks. New medication includes Coreg 6.25 mg orally twice daily. His diastolic blood pressure has averaged 88-98 mmHg. His systolic blood pressure has averaged 112 -157 mmHg. He does have untreated sleep apnea. He has a machine and needs a different mask/adjustment and this will be persued outpatient. Dr. Hong saw patient and recommended carotid evaluation . Carotid ultrasound revealed no significant stenosis. He is anxious for release home and he is being discharged home in stable condition. He will be given a follow-up appointment Dr. Nevarez in approximately 2-3 weeks. He will follow-up with Dr. Hong as needed. Cardiac discharge medications include the following: Aspirin 81 mg orally daily Atorvastatin 10 mg orally each evening Pantoprazole 40 mg orally daily Coreg 6.25 mg orally twice daily. He will resume his preadmission diabetic medications - Time spent with patient Time with patient DS: Greater than 30 minutes Diagnosis - Discharge Diagnosis (1) Dyslipidemia Status: Chronic (2) Diabetes Status: Chronic (3) Obesity (BMI 30.0-34.9) Status: Chronic (4) Sleep disorder Status: Chronic (5) Facial droop Status: Resolved (6) Sinus tachycardia Status: Chronic (7) Chest pain Status: Acute Specialty Discharge - Follow Up or Referrals Follow up with: Edwardo Nevarez MD [Physician] - (2-3 weeks. EKG) Discharge Plan - Discharge Data Disposition: Disch To Home/Self Care Condition at Discharge: Stable Discharge Diet: heart healthy Activity: resume usual activities as tolerated Hygiene: no restrictions Weight Bearing at Discharge: full weight bearing Driving: no restrictions Contact your physician if you experience:: fever over 101, Difficulty voiding, Redness or swelling, Nausea/Vomiting, Shortness of breath, Bleeding, pain uncontrolled by pain medications - Discharge Medications New Carvedilol 6.25 mg PO BID #60 tablet Continue Aspirin [Aspirin EC] 81 mg PO BEDTIME Metformin HCl 1,000 mg PO BID glipiZIDE [Glipizide] 2.5 mg PO AC BREAKFAST Atorvastatin Calcium 10 mg PO DAILY Cholecalciferol [Vitamin D3] 1,000 unit PO DAILY Allopurinol 300 mg PO BID Pantoprazole Tab [Protonix Tab] 40 mg PO DAILY Methocarbamol Tab [Robaxin Tab] 500 mg PO BEDTIME glipiZIDE [Glipizide] 2.5 mg PO AC SUPPER - Follow Up or Referral - Forms/Instructions Exam - Constitutional Vitals: Period Temp Pulse Resp BP Sys/Dutton Pulse Ox Last 24 Hr 97.5 F-98.6 F 70-90 18-20 112-144/78-97 93-98 Exam: General: [Appears well with no apparent distress.] [Pleasant and cooperative. ] [Appears comfortable.] HEENT: [PERRL, normocephalic, atraumatic. Mucous membranes moist. No jaundice noted. Conjunctiva moist and clear, sclerae anicteric] Neck: No JVD/HJR, no thyromegaly or lymphadenopathy noted. No carotid bruit appreciated Cardiac: [Regular rate and rhythm.] [No murmur rub or gallop.] Lungs: [Clear to auscultation without accessory muscle use to assist the respiratory pattern.] Not requiring oxygen Abdomen: Soft, bowel sounds normoactive. Nontender and nondistended. No abdominal bruit or thrill noted. No masses noted. Musculoskeletal: No fluid collection. Decreased range of motion is noted. Extremities: No clubbing, cyanosis noted. [ No edema noted.] Upper extremity pulses 2+. Lower extremity pulses 2+. Capillary refill less than 3 seconds. Skin: No unusual lesions or rashes. No skin breakdown appreciated. Neuro: Awake, alert and oriented 3. Moves all extremities well without hemiparesis or paralysis. No essential tremor is appreciated. Discharge Results Procedures and tests throughout hospitalization: Pending Orders 09/09/16 10:41 NM daria perf SPECT rest or str Routine 09/09/16 15:58 US carotid duplex BI Routine Labs on day of discharge: Labs from last 24 hours 09/09/16 09/09/16 09/09/16 16:15 11:56 07:19 WBC RBC Hgb Hct MCV MCH MCHC RDW Plt Count MPV Neut % (Auto) Lymph % (Auto) [place] % (Auto) Eos % (Auto) Baso % (Auto) Neut # (Auto) Lymph # (Auto) [place] # (Auto) Eos # (Auto) Baso # (Auto) Immature Gran % Nucleated RBC % Immature Gran # Nucleated RBCs # Sodium Potassium Chloride Carbon Dioxide Anion Gap BUN Creatinine GFR Calculation BUN/Creatinine Ratio Glucose POC Glucose 204 H 126 H 158 H Calculated Osmolality Calcium Magnesium Total Bilirubin AST ALT Alkaline Phosphatase Troponin I B-Natriuretic Peptide Total Protein Albumin Globulin Albumin/Globulin Ratio Triglycerides Cholesterol LDL Cholesterol VLDL Cholesterol HDL Cholesterol Heart Disease Risk Ratio Free T4 TSH 3rd Generation 09/09/16 09/09/16 09/09/16 05:08 05:08 05:08 WBC RBC Hgb Hct MCV MCH MCHC RDW Plt Count MPV Neut % (Auto) Lymph % (Auto) [place] % (Auto) Eos % (Auto) Baso % (Auto) Neut # (Auto) Lymph # (Auto) [place] # (Auto) Eos # (Auto) Baso # (Auto) Immature Gran % Nucleated RBC % Immature Gran # Nucleated RBCs # Sodium 142 143 Potassium 4.4 4.5 Chloride 106 108 H Carbon Dioxide 27 27 Anion Gap 13.4 12.5 BUN 10 11 Creatinine 1.20 1.10 GFR Calculation 82 92 BUN/Creatinine Ratio 8.00 10.00 Glucose 144 H 144 H POC Glucose Calculated Osmolality 284.1 286.0 Calcium 8.6 8.4 L Magnesium 2.4 Total Bilirubin 0.60 AST 47 H ALT 99 H Alkaline Phosphatase 107 Troponin I B-Natriuretic Peptide 13 Total Protein 6.4 Albumin 3.5 Globulin 2.9 Albumin/Globulin Ratio 1.2 Triglycerides 203 H Cholesterol 137 LDL Cholesterol 87.0 VLDL Cholesterol 40.6 HDL Cholesterol 29 L Heart Disease Risk Ratio 4.72 Free T4 TSH 3rd Generation 09/09/16 09/08/16 09/08/16 05:08 Unknown 21:33 WBC 6.8 RBC 4.60 Hgb 14.3 Hct 41.8 L MCV 90.9 MCH 31 MCHC 34.2 RDW 13.8 Plt Count 253 MPV 9.8 Neut % (Auto) 60.4 Lymph % (Auto) 27.5 [place] % (Auto) 6.6 Eos % (Auto) 4.5 Baso % (Auto) 0.6 Neut # (Auto) 4.1 Lymph # (Auto) 1.9 [place] # (Auto) 0.5 Eos # (Auto) 0.3 Baso # (Auto) 0.0 Immature Gran % 0.4 Nucleated RBC % 0.0 Immature Gran # 0.03 Nucleated RBCs # 0.00 Sodium Potassium Chloride Carbon Dioxide Anion Gap BUN Creatinine GFR Calculation BUN/Creatinine Ratio Glucose POC Glucose 136 H Calculated Osmolality Calcium Magnesium Total Bilirubin AST ALT Alkaline Phosphatase Troponin I B-Natriuretic Peptide Total Protein Albumin Globulin Albumin/Globulin Ratio Triglycerides Cholesterol LDL Cholesterol VLDL Cholesterol HDL Cholesterol Heart Disease Risk Ratio Free T4 1.11 TSH 3rd Generation 2.740 09/08/16 09/08/16 18:47 16:56 WBC RBC Hgb Hct MCV MCH MCHC RDW Plt Count MPV Neut % (Auto) Lymph % (Auto) [place] % (Auto) Eos % (Auto) Baso % (Auto) Neut # (Auto) Lymph # (Auto) [place] # (Auto) Eos # (Auto) Baso # (Auto) Immature Gran % Nucleated RBC % Immature Gran # Nucleated RBCs # Sodium Potassium Chloride Carbon Dioxide Anion Gap BUN Creatinine GFR Calculation BUN/Creatinine Ratio Glucose POC Glucose 99 Calculated Osmolality Calcium Magnesium Total Bilirubin AST ALT Alkaline Phosphatase Troponin I < 0.015 B-Natriuretic Peptide Total Protein Albumin Globulin Albumin/Globulin Ratio Triglycerides Cholesterol LDL Cholesterol VLDL Cholesterol HDL Cholesterol Heart Disease Risk Ratio Free T4 TSH 3rd Generation - Imaging and Cardiology Cardiology Procedure: report reviewed by me Procedure: Chest x-ray: report reviewed by me, Ultrasound: report reviewed by me (Carotids) DS: Provider Date of admission: 09/08/16 15:10 Primary care physician: . No PCP Attending physician on admission: Edwardo Nevarez MD Consults: 09/08/16 15:21 Consult to Physician [CONS] Routine Comment: New left facial droop Consulting Provider: Nael Hong 09/08/16 15:45 Consult to Pharmacy [CONS] Routine Reason for Pharmacy Consult: Adjust Meds Renal Funct Discharging clinician: Clau Melendez NP Expected date of discharge: 09/09/16
[2016-09-09] MEDS: glipiZIDE 5 MG TABLET PO SCH (17:26)
--- NOTE | 2016-09-09 17:36 | Ultrasound Report ---
Exam: US carotid duplex BI Date: 09/09/2016 3:58 PM Indication: Syncope Technique: Duplex scan of the bilateral carotid arteries using B-mode/grayscale imaging and Doppler spectral analysis and color flow. Findings: Right Flow velocities centimeters per second Common carotid artery: 77 Proximal ICA: 63 Distal ICA: 73 External carotid artery: 78 Vertebral artery: 33 with antegrade flow ICA/CCA ratio: 0.9 Measurements in millimeters Distal ICA: 5.0 Left: Flow velocities centimeters per second Common carotid artery: 81 Proximal ICA: 59 Distal ICA: 79 External carotid artery: 69 Vertebral artery: 56 with antegrade flow ICA/CCA ratio: 1.0 Measurements in millimeters Distal ICA: 5.0 No significant atherosclerotic plaque or luminal stenosis is evident within either internal carotid artery. Color flow is present in all visualized vessels with Doppler analysis. Impression: No significant atherosclerotic disease or luminal stenosis (less than 15%) within either internal carotid artery by ultrasound criteria. Today studies were performed utilizing indirect NASCET criteria The ultrasound images were stored and captured PROCEDURE INTERPRETED AT [facility] DEPARTMENT OF RADIOLOGY Final Report Signed by: Lew Avilez
--- NOTE | 2016-09-09 20:15 | Nuclear Medicine Report ---
DATE OF PROCEDURE: 09/09/2016 Mr. Messer presented with some atypical chest pain symptoms, but had cardiac risk factors. He is un dergoing cardiac ischemic screening with a stress myocardial perfusion study. He underwent a stress myocardial perfusion study after 10 mCi dose of Technetium-99m bound to sestamibi. He then underwe nt a full Dwight protocol stress test. The patient exercised for 5 minutes and 35 seconds achieving a maximum heart rate of 164 beats per minutes, which is 85% of his age-predicted maximum. The test was stopped secondary to the target heart rate being achieved. During exercise, the patient had no clinical or EKG sinus of cardiac ischemia. He had a normal hemodynamic response. New peak exercise , he received a 30 mCi dose of Technetium-99m bound to sestamibi and repeat myocardial perfusion mamta ging was repeated. Comparison of the stress and rest myocardial perfusion images revealed no eviden ce of significant cardiac ischemia. There is uniform radiotracer uptake throughout the left ventric ular myocardium. Quantitative perfusion analysis calculates sound stress score of 0. This is also consistent with no ischemia. Quantitative gated images calculate left ventricular ejection fraction of 64% with normal regional wall motion. IMPRESSION: 1. Clinically and electively negative maximal for Dwight protocol stress test. 2. There is no evidence of cardiac ischemia on perfusion imaging. 3. There is normal left ventricular function on the study. CONCLUSION: These results are most consistent with a low-risk test. Procedure performed and interpreted at [facility] Department of Radiology.
[2016-09-10] MEDS ORDERED: ASPIRIN EC 325 MG TABLET PO SCH (09:00)
== END 2016-09-09 18:25 | disposition home or self-care (01) ==
LOC: N.EDINP 11:32 → N.ED 11:32 → N.TELES 16:20
PROVIDERS: ADMIT Internal Medicine Cardiovascular Disease; ATTEND Internal Medicine Cardiovascular Disease